=== PATIENT | female | born 1930 ===

== ENCOUNTER → 2019-01-17 | Outpatient (REF) | payer MEDICARE, OTHER ==
[2019-01-17 20:08] LABS: INR 1.06; PROTHROMBIN TIME 13.5 SECONDS (11.8-14.0)
== END ==
LOC: M LABDRWAD 19:26
PROVIDERS: ATTEND Internal Medicine Hematology & Oncology
DX: D75.9 Disease of blood and blood-forming organs, unspecified (principal)